=== PATIENT | male | born 1950 | race Caucasian/White ===

== ENCOUNTER → 2020-02-18 | Outpatient (CLI) | payer MEDICARE ==
[2016-04-11 09:07] VITALS: BP 114/65
[~2020-02-18] MED LIST: ATOR10TA60 PO; HYDR50TA6 PO; LINE600T12 PO; LISI-334 PO; MELO15TA23 PO; MULT1TAB77 PO; OXYC10TA PO; [UNRECOGNIZED DRUG - CODE] PO
--- NOTE | 2020-02-18 17:06 | RAD ---
INDICATION: Reason: PULMONARY NODULE / Spl. Instructions: / History: COMPARISON: November 2007 FINDINGS: Frontal and lateral views of the chest obtained. Disorganized pulmonary markings bilaterally. Cardiac silhouette is similar to prior. Fullness of the bilateral pulmonary hilum again seen. Degenerative changes of the spine. There is some regions of apparent nodularity bilaterally versus vessels seen on end. IMPRESSION: * No definite new region of focal airspace consolidation. * There are some apparent small nodules bilaterally versus vessels seen on end. If there is high concern for a pulmonary nodule CT can better assess. Electronically signed by: Ottoniel Loja MD (02/18/2020 5:03 PM) [id number]
== END ==
LOC: DXRAD 12:53
PROVIDERS: ATTEND Specialist
DX: R91.1 Solitary pulmonary nodule (principal)
CPT/HCPCS: 71046

== ENCOUNTER → 2020-02-22 | Outpatient (CLI) | payer MEDICARE ==
[2016-04-11 09:07] VITALS: BP 114/65
[~2020-02-22] MED LIST changes: +IOHEXOL 300 MG/ML 75 ML VIAL. IV ONE
--- NOTE | 2020-02-22 23:27 | RAD ---
CT chest with contrast: Reason for examination: Possible pulmonary nodules on chest x-ray. Having hot sweats and clamminess. Helical images were obtained through the chest with intravenous administration of 75 cc Omnipaque 300. Reconstruction was performed in sagittal and coronal planes. Exposure: One or more of the following individualized dose reduction techniques were utilized for this examination: 1. Automated exposure control 2. Adjustment of the mA and/or kV according to patient size 3. Use of iterative reconstruction technique. No abnormality seen at the thyroid gland. The trachea and mainstem bronchi show no intraluminal lesions. No abnormality seen at the esophagus. The thoracic aorta is normal in caliber and course. The heart size is normal with no pericardial effusion. There there are multiple small lymph nodes in the mediastinum. No infiltrates, nodules or pleural effusions are seen. There are hypertrophic changes in the thoracic spine. No acute bony abnormalities are seen. No abnormality seen at the liver, spleen, adrenal glands or pancreas. IMPRESSION: Multiple small lymph nodes in the mediastinum possibly reactive. No pulmonary nodules or infiltrates. Electronically signed by: Sarah Daniel MD (02/22/2020 11:24 PM) [id number]
== END | disposition home or self-care (01) ==
LOC: CT 08:13
PROVIDERS: ATTEND Specialist
DX: R91.1 Solitary pulmonary nodule (principal); M47.814 Spondylosis without myelopathy or radiculopathy, thoracic region
CPT/HCPCS: 71260; Q9967